=== PATIENT | male | born 1955 | race Caucasian/White ===

== ENCOUNTER → 2022-07-21 | Outpatient (CLI) | payer OTHER ==
[~2022-07-21] MED LIST: ABIR250T; ACET650T15 PO; ALBU8.5H INH; BACL1TAB9; BUDE10.7 IH; ELIQ5TAB; GASTROGRAFIN SOLUTION 30ML (Q9963) As Ordered ONE; ISOVUE-370 76% 100ML VIAL As Ordered ONE; MULT-6 PO; OMEG10002 PO; PRED5TA; PRED5TA PO; ZYTI250T PO
== END ==
LOC: M RAD 13:53
PROVIDERS: ATTEND Internal Medicine Medical Oncology
DX: C34.90 Malignant neoplasm of unspecified part of unspecified bronchus or lung (principal)
CPT/HCPCS: 70491; 71260; 74177; Q9963; Q9967

== ENCOUNTER → 2022-11-17 | Outpatient (REF) | payer OTHER ==
[~2022-11-17] MED LIST changes: +BACL1TAB9 PO; -GASTROGRAFIN SOLUTION 30ML (Q9963) As Ordered ONE; -ISOVUE-370 76% 100ML VIAL As Ordered ONE
== END ==
LOC: M LAB REF 09:41
PROVIDERS: ATTEND Nurse Practitioner
DX: C34.11 Malignant neoplasm of upper lobe, right bronchus or lung (principal); C61 Malignant neoplasm of prostate; C77.1 Secondary and unspecified malignant neoplasm of intrathoracic lymph nodes

== ENCOUNTER → 2022-11-18 | Outpatient (CLI) | payer OTHER ==
[~2022-11-18] MED LIST changes: +GASTROGRAFIN SOLUTION 30ML As Ordered ONE; +ISOVUE-370 76% 100ML VIAL As Ordered ONE; +OMEP40CA4 PO
== END ==
LOC: M RAD 09:05
PROVIDERS: ATTEND Nurse Practitioner
DX: C34.90 Malignant neoplasm of unspecified part of unspecified bronchus or lung (principal)
CPT/HCPCS: 71260; 74177; Q9963; Q9967

== ENCOUNTER → 2023-03-04 | Outpatient (CLI) | payer OTHER ==
[~2023-03-04] MED LIST changes: +ACET-683 PO; +ATOR1TAB19 PO; -ELIQ5TAB; +ELIQ5TAB PO; +FLON1SPR; -GASTROGRAFIN SOLUTION 30ML As Ordered ONE; -ISOVUE-370 76% 100ML VIAL As Ordered ONE; +KEYT1INJ IV; +MED FOR PROSTATE CA IM; +NICO10SP NARES; +PANT40TA29 PO; +PROHANCE 279.3MG/ML 15ML VIAL As Ordered ONE; +PROHANCE 279.3MG/ML 5ML VIAL As Ordered ONE
== END ==
LOC: M RAD 10:28
PROVIDERS: ATTEND Internal Medicine Medical Oncology
DX: C34.90 Malignant neoplasm of unspecified part of unspecified bronchus or lung (principal)

== ENCOUNTER 2023-03-19 08:55 | Day surgery (SDC) | payer OTHER ==
[~2023-03-19] VITALS: Ht 160 cm; Wt 84.8 kg
[~2023-03-19 08:55] MED LIST changes: +NS 1,000 ML IV ONE; -PROHANCE 279.3MG/ML 15ML VIAL As Ordered ONE; -PROHANCE 279.3MG/ML 5ML VIAL As Ordered ONE
[2023-03-19] MEDS ORDERED: propofoL 200 MG/20 ML VIAL As Ordered ONE (10:18)
[2023-03-19] MEDS ORDERED: GLYCOPYRROLATE INJ 0.2 MG/ML 2 ML VIAL As Ordered ONE (10:28)
[2023-03-19] MEDS ORDERED: PHENYLephrine 500MCG 5ML (100MCG/ML) SYRINGE As Ordered ONE (10:29)
[2023-03-19 11:14] VITALS: BP 126/75; TEMP 97.6; O2SAT 97
[2023-03-22] MEDS ORDERED: ZYTI250T PO (11:08)
[2023-03-22] MEDS ORDERED: PRED5TA PO (11:08)
== END 2023-03-19 11:16 | disposition home or self-care (01) ==
LOC: M OPP 08:55
PROVIDERS: ATTEND Internal Medicine Gastroenterology
DX: D12.5 Benign neoplasm of sigmoid colon (principal); K62.7 Radiation proctitis; K92.1 Melena; K57.30 Diverticulosis of large intestine without perforation or abscess without bleeding; K64.8 Other hemorrhoids; Z79.01 Long term (current) use of anticoagulants; Z79.1 Long term (current) use of non-steroidal anti-inflammatories (NSAID); Z79.2 Long term (current) use of antibiotics; Z79.51 Long term (current) use of inhaled steroids; Z88.0 Allergy status to penicillin; Z91.013 Allergy to seafood; Z91.030 Bee allergy status
CPT/HCPCS: 45385; 45388; 88305; J2370

== ENCOUNTER → 2023-05-20 | Outpatient (CLI) | payer OTHER ==
[~2023-05-20] MED LIST changes: +CIPR0.2S AS; +GASTROGRAFIN SOLUTION 30ML As Ordered ONE; +ISOVUE-370 76% 100ML VIAL As Ordered ONE; -NS 1,000 ML IV ONE
== END ==
LOC: M RAD 10:14
PROVIDERS: ATTEND Internal Medicine Medical Oncology
DX: C34.11 Malignant neoplasm of upper lobe, right bronchus or lung (principal); E27.9 Disorder of adrenal gland, unspecified; K43.9 Ventral hernia without obstruction or gangrene; N28.1 Cyst of kidney, acquired
CPT/HCPCS: 71260; 74177; Q9963; Q9967

== ENCOUNTER → 2023-08-23 | Outpatient (CLI) | payer OTHER ==
[~2023-08-23] MED LIST changes: +LISI10TA22 PO; +LISI5TAB11 PO; +NICO10SP; +NICOTINE TD
== END ==
LOC: M RAD 13:27
PROVIDERS: ATTEND Internal Medicine Medical Oncology
DX: C34.90 Malignant neoplasm of unspecified part of unspecified bronchus or lung (principal)
CPT/HCPCS: 71260; 74177; Q9963; Q9967

== ENCOUNTER → 2023-11-22 | Outpatient (CLI) | payer OTHER ==
[~2023-11-22] MED LIST changes: +HYDR12.55
== END ==
LOC: M RAD 08:45
PROVIDERS: ATTEND Nurse Practitioner
DX: C34.00 Malignant neoplasm of unspecified main bronchus (principal)
CPT/HCPCS: 71260; 74177; Q9963; Q9967

== ENCOUNTER → 2023-12-15 | Outpatient (CLI) | payer OTHER ==
[~2023-12-15] MED LIST changes: -GASTROGRAFIN SOLUTION 30ML As Ordered ONE; +HYDR28CR33 TOP; -ISOVUE-370 76% 100ML VIAL As Ordered ONE; +LISI10TA22; +LOPE2TAB12 PO; +PROHANCE 279.3MG/ML 15ML VIAL ONE; +PROHANCE 279.3MG/ML 5ML VIAL ONE
== END ==
LOC: M PLAIMG 13:28
PROVIDERS: ATTEND Psychiatry & Neurology Neurology
DX: G35 Multiple sclerosis (principal)
CPT/HCPCS: 70553; A9576

== ENCOUNTER 2023-12-17 17:07 | Emergency (ER) | payer OTHER ==
[~2023-12-17] VITALS: Ht 160 cm; Wt 82.8 kg
[~2023-12-17 17:07] MED LIST changes: -LISI10TA22; -LOPE2TAB12 PO; -PROHANCE 279.3MG/ML 15ML VIAL ONE; -PROHANCE 279.3MG/ML 5ML VIAL ONE
[2023-12-17] MEDS ORDERED: LISI10TA22 (17:20)
[2023-12-17 18:07] LABS: BASO % 0.2 % (0.0-1.0); EOS # 0.1 10^3/uL (0.0-0.5); EOS % 0.5 % (0.0-3.0); HEMATOCRIT 46.3 % (42.0-52.0); HEMOGLOBIN 16.1 g/dl (13.5-17.5); LYMPH # 0.7 10^3/uL (1.5-5.0); LYMPH % 7.3 % (24.0-44.0); MEAN CORPUSCULAR HEMOGLOBIN 35.2 pg (27.0-33.0); MEAN CORPUSCULAR HGB CONC 34.8 g/dl (32.0-36.5); MEAN CORPUSCULAR VOLUME 101.1 fl (80.0-96.0); MONO # 0.7 10^3/uL (0.0-0.8); MONO % 7.4 % (2.0-8.0); NEUTROPHILS # 7.9 10^3/uL (1.5-8.5); NEUTROPHILS % 84.2 % (36.0-66.0); PLATELET COUNT, AUTOMATED 181 10^3/uL (150-450); RED BLOOD COUNT 4.58 10^6/uL (4.30-6.10); WHITE BLOOD COUNT 9.4 10^3/uL (4.0-10.0)
[2023-12-17] MEDS: PANTOPRAZOLE 40MG VIAL IV ONE (18:14)
[2023-12-17 18:15] LABS: INR 0.96; PARTIAL THROMBOPLASTIN TIME 28.1 SECONDS (24.8-34.2); PROTHROMBIN TIME 12.6 SECONDS (12.5-14.5)
[2023-12-17 18:16] LABS: LIPASE 26 U/L (12-53)
[2023-12-17] MEDS: NS 1,000 ML IV ONE (18:16)
[2023-12-17 18:18] LABS: ALBUMIN 3.8 G/DL (3.2-5.2); ALKALINE PHOSPHATASE 93 U/L (46-116); ALT/SGPT 29 U/L (7.0-40); AST/SGOT 24 U/L (<34); BILIRUBIN,DIRECT 0.1 MG/DL (<0.4); BILIRUBIN,TOTAL 0.4 MG/DL (0.3-1.2); BLOOD UREA NITROGEN 20 MG/DL (9-23); CALCIUM LEVEL 9.6 MG/DL (8.3-10.6); CARBON DIOXIDE LEVEL 26 MMOL/L (20-31); CHLORIDE LEVEL 106 MMOL/L (98-107); CREATININE FOR GFR 0.72 MG/DL (0.70-1.30); GLOMERULAR FILTRATION RATE > 60.0 (>49); GLUCOSE, FASTING 120 MG/DL (74-106); SODIUM LEVEL 136 MMOL/L (136-145); TOTAL PROTEIN 6.9 G/DL (5.7-8.2)
[2023-12-17] MEDS ORDERED: LOPE2TAB12 PO (18:54)
[2023-12-17] MEDS: LOPERAMIDE 2 MG CAPLET PO ONE (19:07)
[2023-12-17 19:12] VITALS: BP 124/74; TEMP 98; O2SAT 100
== END 2023-12-17 19:14 | disposition home or self-care (01) ==
LOC: M ED 17:07
DX: R19.7 Diarrhea, unspecified (principal); I10 Essential (primary) hypertension; J44.9 Chronic obstructive pulmonary disease, unspecified; F17.210 Nicotine dependence, cigarettes, uncomplicated; Z88.0 Allergy status to penicillin; Z91.013 Allergy to seafood; Z91.030 Bee allergy status; Z79.1 Long term (current) use of non-steroidal anti-inflammatories (NSAID); Z79.51 Long term (current) use of inhaled steroids; Z79.2 Long term (current) use of antibiotics; Z79.810 Long term (current) use of selective estrogen receptor modulators (SERMs); Z79.52 Long term (current) use of systemic steroids; Z79.899 Other long term (current) drug therapy
CPT/HCPCS: 74176; 80048; 80076; 83690; 85025; 85610; 85730; 86850; 86900; 86901; 96361; 96374; 99284; C9113

== ENCOUNTER → 2023-12-20 | Outpatient (CLI) | payer OTHER ==
[~2023-12-20] MED LIST changes: +LISI10TA22; +LOPE2TAB12 PO; +PROHANCE 279.3MG/ML 15ML VIAL ONE; +PROHANCE 279.3MG/ML 5ML VIAL ONE
== END ==
LOC: M PLAIMG 09:06
PROVIDERS: ATTEND Psychiatry & Neurology Neurology
DX: G35 Multiple sclerosis (principal)
CPT/HCPCS: 72156; 72157; A9576

== ENCOUNTER 2024-02-28 12:15 | Day surgery (SDC) | payer OTHER ==
[~2024-02-28] VITALS: Ht 160 cm; Wt 74.4 kg
[2024-02-28] MEDS: NS 1,000 ML IV ONE (06:00)
[~2024-02-28 12:15] MED LIST changes: -HYDR12.55; +HYDR12.55 PO; +LEVO1TAB39 PO; -LISI10TA22; +LOPE-39 PO; +PRED1TABL PO; -PROHANCE 279.3MG/ML 15ML VIAL ONE; -PROHANCE 279.3MG/ML 5ML VIAL ONE
[2024-02-28] MEDS ORDERED: FECAL MICROBIOTA TRANSPLANT PREPARATION 35ML BAG XX ONE (14:00)
[2024-02-28] MEDS ORDERED: propofoL 200 MG/20 ML VIAL As Ordered ONE (14:53)
[2024-02-28] MEDS ORDERED: LIDOCAINE 2% 100MG/5ML SDV (FOR ANES.) As Ordered ONE (14:53)
[2024-02-28 15:07] VITALS: TEMP 97.9
[2024-02-28 15:26] VITALS: BP 123/70; O2SAT 99
[2024-03-02] MEDS ORDERED: PRED10TA2 PO (13:22)
[2024-03-02] MEDS ORDERED: POTA8CAP10 PO (13:26)
[2024-04-13] MEDS ORDERED: HYDR-3490 PO (09:44)
[2024-04-13] MEDS ORDERED: METO1TAB87 PO (09:44)
[2024-04-14] MEDS ORDERED: LOPE2TAB12 PO (10:41)
[2024-04-14] MEDS ORDERED: PRED10TA2 PO (10:52)
[2024-04-28] MEDS ORDERED: PRED5TA PO (13:44)
[2024-05-31] MEDS ORDERED: MAGN400C PO (13:36)
== END 2024-02-28 15:27 | disposition home or self-care (01) ==
LOC: M OPP 12:15
PROVIDERS: ATTEND Internal Medicine Gastroenterology
DX: A04.72 Enterocolitis due to Clostridium difficile, not specified as recurrent (principal); K52.832 Lymphocytic colitis; I10 Essential (primary) hypertension; J44.9 Chronic obstructive pulmonary disease, unspecified; G35 Multiple sclerosis; F17.200 Nicotine dependence, unspecified, uncomplicated; Z86.711 Personal history of pulmonary embolism; Z79.01 Long term (current) use of anticoagulants; Z79.02 Long term (current) use of antithrombotics/antiplatelets; Z79.1 Long term (current) use of non-steroidal anti-inflammatories (NSAID); Z79.51 Long term (current) use of inhaled steroids; Z79.891 Long term (current) use of opiate analgesic; Z79.899 Other long term (current) drug therapy; Z88.0 Allergy status to penicillin; Z91.013 Allergy to seafood; Z91.030 Bee allergy status
CPT/HCPCS: 45380; 88305; G0455

== ENCOUNTER 2024-03-08 14:50 | Inpatient (IN) | payer OTHER ==
[~2024-03-08] VITALS: Ht 160 cm; Wt 77.2 kg
[~2024-03-08 14:50] MED LIST changes: +POTA8CAP10 PO; +PRED10TA2 PO
[2024-03-08] MEDS ORDERED: VANC1CAP6 PO (15:11)
[2024-03-08] MEDS ORDERED: VANCOMYCIN HCL 1,500 MG in NS 250 ML IV ONE (17:25)
[2024-03-08 17:32] LABS: HEMATOCRIT 38.8 % (42.0-52.0); HEMOGLOBIN 13.2 g/dl (13.5-17.5); MEAN CORPUSCULAR HEMOGLOBIN 34.6 pg (27.0-33.0); MEAN CORPUSCULAR VOLUME 101.8 fl (80.0-96.0); PLATELET COUNT, AUTOMATED 222 10^3/uL (150-450); RED BLOOD COUNT 3.81 10^6/uL (4.30-6.10); WHITE BLOOD COUNT 13.6 10^3/uL (4.0-10.0)
[2024-03-08] MEDS: VANCOMYCIN HCL 750 MG, VIAL MATE ADAPTER 1 EACH in D5W 250 ML IV ONE ×2 (17:41→18:50)
[2024-03-08 17:46] LABS: ERYTHROCYTE SEDIMENTATION RATE 27 mm/hr (0-20)
[2024-03-08 17:57] LABS: INR 1.17; PROTHROMBIN TIME 14.6 SECONDS (12.5-14.5)
[2024-03-08 17:58] LABS: ATYPICAL LYMPH 1 % (0-5); LYMPHOCYTES 2 % (16-44); MONOCYTES 3 % (0-5); NEUTROPHILS 77 % (28-66)
[2024-03-08 17:59] LABS: PLATELET ESTIMATE NORMAL (NORMAL); TOXIC VACUOLATION 2+
[2024-03-08 18:01] LABS: ALBUMIN 2.7 G/DL (3.2-5.2); ALKALINE PHOSPHATASE 60 U/L (46-116); ALT/SGPT 29 U/L (7.0-40); AST/SGOT 15 U/L (<34); BILIRUBIN,DIRECT 0.2 MG/DL (<0.4); BILIRUBIN,TOTAL 0.5 MG/DL (0.3-1.2); BLOOD UREA NITROGEN 22 MG/DL (9-23); CALCIUM LEVEL 8.6 MG/DL (8.3-10.6); CARBON DIOXIDE LEVEL 29 MMOL/L (20-31); CHLORIDE LEVEL 105 MMOL/L (98-107); CREATININE FOR GFR 0.73 MG/DL (0.70-1.30); GLOMERULAR FILTRATION RATE > 60.0 (>49); GLUCOSE, FASTING 167 MG/DL (74-106); POTASSIUM SERUM 4.1 MMOL/L (3.5-5.1); SODIUM LEVEL 139 MMOL/L (136-145); TOTAL PROTEIN 5.3 G/DL (5.7-8.2)
[2024-03-08 18:08] LABS: PROCALCITONIN 4.07 ng/ml
[2024-03-08] MEDS ORDERED: VANCOMYCIN HCL 1,500 MG in D5W 250 ML IV SCH (19:25)
[2024-03-08] MEDS ORDERED: MAALOX 30 ML SUSP *UDC PO PRN (19:25)
[2024-03-08] MEDS ORDERED: MOM 30ML SUSPENSION UDC PO PRN (19:25)
[2024-03-08 19:43] LABS: MAGNESIUM LEVEL 1.5 MG/DL (1.8-2.4)
[2024-03-08] MEDS: NICOTINE 21MG/24HR 1 EA TRANSDERMAL TD ONE (20:01)
[2024-03-08] MEDS: SODIUM CHLORIDE 0.9% 1000ML IV ONE (20:01)
[2024-03-08] MEDS ORDERED: POTA8CAP10 PO (20:26)
[2024-03-08] MEDS ORDERED: BACL1TAB9 PO (20:26)
[2024-03-08] MEDS ORDERED: BUDE10.7 INH (20:26)
[2024-03-08] MEDS ORDERED: PANT40TA29 PO (20:26)
[2024-03-08] MEDS ORDERED: HOME MED LIST COMPLETE! XX SCH (20:30)
[2024-03-08 20:35] LABS: FREE T4 1.02 NG/DL (0.89-1.76)
[2024-03-08 20:36] LABS: THYROID STIMULATING HORMONE 0.353 uIU/ML (0.55-4.78)
[2024-03-08] MEDS: MAG SULF 1GM/100ML (MAG RUN) 1 GM in IV 1 EA IV SCH (21:03)
[2024-03-08] MEDS: FIDAXOMICIN 200 MG TAB (DIFICID) PO SCH (21:49)
[2024-03-08 23:07] LABS: CLOSTRIDIUM DIFFICILE PCR NEGATIVE (NEGATIVE)
[2024-03-09] VITALS (12 sets, daily range): BP systolic 103–141; BP diastolic 56–72; TEMP 97.2–99.3; O2SAT 89–94
[2024-03-09] MEDS: APIXABAN 5 MG TAB (ELIQUIS) PO SCH (01:43)
[2024-03-09 05:45] LABS: HEMATOCRIT 34.1 % (42.0-52.0); HEMOGLOBIN 11.8 g/dl (13.5-17.5); MEAN CORPUSCULAR HEMOGLOBIN 34.7 pg (27.0-33.0); MEAN CORPUSCULAR HGB CONC 34.6 g/dl (32.0-36.5); MEAN CORPUSCULAR VOLUME 100.3 fl (80.0-96.0); PLATELET COUNT, AUTOMATED 191 10^3/uL (150-450); WHITE BLOOD COUNT 11.7 10^3/uL (4.0-10.0)
[2024-03-09] MEDS: VANCOMYCIN HCL 750 MG, VIAL MATE ADAPTER 1 EACH in D5W 250 ML IV SCH (06:00)
[2024-03-09 06:16] LABS: PROCALCITONIN 3.06 ng/ml
[2024-03-09 06:17] LABS: ALKALINE PHOSPHATASE 55 U/L (46-116); ALT/SGPT 23 U/L (7.0-40); AST/SGOT 13 U/L (<34); BILIRUBIN,TOTAL 0.3 MG/DL (0.3-1.2); BLOOD UREA NITROGEN 19 MG/DL (9-23); CALCIUM LEVEL 8.3 MG/DL (8.3-10.6); CARBON DIOXIDE LEVEL 29 MMOL/L (20-31); CHLORIDE LEVEL 103 MMOL/L (98-107); CREATININE FOR GFR 0.61 MG/DL (0.70-1.30); GLOMERULAR FILTRATION RATE > 60.0 (>49); GLUCOSE, FASTING 135 MG/DL (74-106); MAGNESIUM LEVEL 1.8 MG/DL (1.8-2.4); POTASSIUM SERUM 3.8 MMOL/L (3.5-5.1); SODIUM LEVEL 133 MMOL/L (136-145); TOTAL PROTEIN 4.3 G/DL (5.7-8.2)
[2024-03-09] MEDS: TIOTROPIUM INHALER/CAPSULE (SPIRIVA) INH SCH (08:00)
[2024-03-09] MEDS: SYMBICORT 80/4.5MCG INHALER 6GM INH SCH (08:00)
[2024-03-09] MEDS: VANCOMYCIN HCL 500 MG in D5W MINI-BAG PLUS 100 ML IV SCH (08:11)
[2024-03-09] MEDS: LACTOBACILLUS ACIDOPHILUS CAP (BACID) PO SCH (08:12)
[2024-03-09] MEDS: MAGNESIUM OXIDE 400MG TAB (MAG-OX) PO SCH (08:12)
[2024-03-09] MEDS ORDERED: CEFEPIME HCL 2 GM in D5W MINI-BAG PLUS 50 ML IV SCH (08:30)
[2024-03-09] MEDS: LR 1,000 ML IV ONE (09:26)
[2024-03-09 10:24] LABS: ANTI-STREPTOLYSIN O QUANT 129.9 IU/ML (<195)
[2024-03-09] MEDS: predniSONE 10MG TAB PO SCH (10:41)
[2024-03-09] MEDS: METOPROLOL TART 25 MG TABLET PO SCH (10:41)
[2024-03-09] MEDS: CEFEPIME HCL 2 GM in D5W MINI-BAG PLUS 50 ML IV SCH (10:41)
[2024-03-09] MEDS: ATORVASTATIN 10 MG TAB PO SCH (10:42)
[2024-03-09] MEDS: PANTOPRAZOLE 40MG TAB (PROTONIX) PO SCH (10:42)
[2024-03-09] MEDS: ACETAMINOPHEN TAB 650MG DOSE (2X325MG) PO PRN (11:49)
[2024-03-09] MEDS ORDERED: MORPHINE 2 MG/ML 1ML VIAL IV PRN (12:45)
[2024-03-09] MEDS ORDERED: LINE1TAB PO (17:39)
[2024-03-09] MEDS: LINEZOLID 600MG TABLET (ZYVOX) PO SCH (20:34)
[2024-03-10] VITALS (20 sets, daily range): BP systolic 124–156; BP diastolic 71–84; TEMP 97.4–99.3; O2SAT 83–98
[2024-03-10 05:06] LABS: BASO % 0.1 % (0.0-1.0); EOS % 0.1 % (0.0-3.0); HEMATOCRIT 30.9 % (42.0-52.0); HEMOGLOBIN 10.4 g/dl (13.5-17.5); LYMPH # 0.3 10^3/uL (1.5-5.0); LYMPH % 2.3 % (24.0-44.0); MEAN CORPUSCULAR HGB CONC 33.7 g/dl (32.0-36.5); MONO # 0.9 10^3/uL (0.0-0.8); MONO % 6.4 % (2.0-8.0); NEUTROPHILS # 12.1 10^3/uL (1.5-8.5); NEUTROPHILS % 89.7 % (36.0-66.0); PLATELET COUNT, AUTOMATED 166 10^3/uL (150-450); RED BLOOD COUNT 3.06 10^6/uL (4.30-6.10); WHITE BLOOD COUNT 13.5 10^3/uL (4.0-10.0)
[2024-03-10 05:31] LABS: BLOOD UREA NITROGEN 15 MG/DL (9-23); CALCIUM LEVEL 7.7 MG/DL (8.3-10.6); CARBON DIOXIDE LEVEL 28 MMOL/L (20-31); CHLORIDE LEVEL 104 MMOL/L (98-107); CREATININE FOR GFR 0.59 MG/DL (0.70-1.30); GLOMERULAR FILTRATION RATE > 60.0 (>49); GLUCOSE, FASTING 128 MG/DL (74-106); POTASSIUM SERUM 3.8 MMOL/L (3.5-5.1); SODIUM LEVEL 135 MMOL/L (136-145)
[2024-03-10] MEDS: PERCOCET 5MG/325MG TAB PO PRN (08:25)
[2024-03-10] MEDS ORDERED: GLUCAGON INJ 1MG VIAL SC PRN (18:20)
[2024-03-10] MEDS ORDERED: DEXTROSE 50% 50ML SYRINGE IV PRN (18:20)
[2024-03-10] MEDS ORDERED: GLUCOSE 4 GM CHEW PO PRN (18:20)
[2024-03-10] MEDS: INSULIN LISPRO (NovoLOG) PER UNIT SC SCH ×2 (18:30→21:00)
[2024-03-10 18:53] LABS: HEMOGLOBIN A1c 5.6 % (4.0-6.0)
[2024-03-10] MEDS: METOPROLOL TART 50 MG TAB PO SCH (21:18)
[2024-03-11] MEDS: LEVALBUTEROL 1.25MG 0.5ML CONCENTRATE NEB INH PRN (03:26)
[2024-03-11 03:46] VITALS: BP 136/78; TEMP 97.6; O2SAT 91
[2024-03-11 07:21] LABS: BASO % 0.1 % (0.0-1.0); EOS % 0.1 % (0.0-3.0); HEMATOCRIT 30.6 % (42.0-52.0); HEMOGLOBIN 10.5 g/dl (13.5-17.5); LYMPH # 0.4 10^3/uL (1.5-5.0); LYMPH % 3.1 % (24.0-44.0); MEAN CORPUSCULAR HEMOGLOBIN 34.3 pg (27.0-33.0); MEAN CORPUSCULAR HGB CONC 34.3 g/dl (32.0-36.5); MONO # 0.6 10^3/uL (0.0-0.8); MONO % 5.3 % (2.0-8.0); NEUTROPHILS # 10.4 10^3/uL (1.5-8.5); NEUTROPHILS % 89.8 % (36.0-66.0); PLATELET COUNT, AUTOMATED 161 10^3/uL (150-450); RED BLOOD COUNT 3.06 10^6/uL (4.30-6.10); WHITE BLOOD COUNT 11.5 10^3/uL (4.0-10.0)
[2024-03-11 07:55] LABS: BLOOD UREA NITROGEN 14 MG/DL (9-23); CALCIUM LEVEL 8.3 MG/DL (8.3-10.6); CARBON DIOXIDE LEVEL 27 MMOL/L (20-31); CHLORIDE LEVEL 106 MMOL/L (98-107); GLOMERULAR FILTRATION RATE > 60.0 (>49); GLUCOSE, FASTING 124 MG/DL (74-106); POTASSIUM SERUM 3.9 MMOL/L (3.5-5.1); SODIUM LEVEL 138 MMOL/L (136-145)
[2024-03-11 08:08] VITALS: BP 144/84
[2024-03-11] MEDS: INSULIN LISPRO (NovoLOG) PER UNIT SC SCH (08:09)
[2024-03-11 08:29] VITALS: TEMP 97.3; O2SAT 97
[2024-03-11 09:00] VITALS: O2SAT 92
[2024-03-11] MEDS ORDERED: RISATAB3 PO (11:36)
[2024-03-11] MEDS ORDERED: METO25TA4 PO (11:36)
== END 2024-03-11 14:00 | disposition home health service (06) | DRG 872 ==
LOC: M ED 14:50 → M ED INP 19:22 → M PCU 03-09 01:23
PROVIDERS: ADMIT Family Medicine; ATTEND Internal Medicine
PROC: B246ZZZ Ultrasonography of Right and Left Heart (ICD-10-PCS; principal; 2024-03-09)
DX: A41.9 Sepsis, unspecified organism (principal); L03.115 Cellulitis of right lower limb; A04.0 Enteropathogenic Escherichia coli infection; K52.1 Toxic gastroenteritis and colitis; C78.4 Secondary malignant neoplasm of small intestine; C34.90 Malignant neoplasm of unspecified part of unspecified bronchus or lung; D84.821 Immunodeficiency due to drugs; I48.91 Unspecified atrial fibrillation; R65.20 Severe sepsis without septic shock; G35 Multiple sclerosis; K21.9 Gastro-esophageal reflux disease without esophagitis; J44.9 Chronic obstructive pulmonary disease, unspecified; B19.20 Unspecified viral hepatitis C without hepatic coma; F17.200 Nicotine dependence, unspecified, uncomplicated; E83.42 Hypomagnesemia; I10 Essential (primary) hypertension; E78.5 Hyperlipidemia, unspecified; T45.1X5A Adverse effect of antineoplastic and immunosuppressive drugs, initial encounter; Z85.46 Personal history of malignant neoplasm of prostate; Z86.711 Personal history of pulmonary embolism; Z79.01 Long term (current) use of anticoagulants; Z79.899 Other long term (current) drug therapy; Z88.0 Allergy status to penicillin; Z91.018 Allergy to other foods; Z91.030 Bee allergy status

== ENCOUNTER → 2024-04-21 | Outpatient (CLI) | payer OTHER ==
[~2024-04-21] MED LIST changes: +BUDE10.7 INH; +GASTROGRAFIN SOLUTION 30ML ONE; +HYDR-3490 PO; +ISOVUE-370 76% 100ML VIAL ONE; +LINE1TAB PO; +METO1TAB87 PO; +METO25TA4 PO; +RISATAB3 PO; +VANC1CAP6 PO
== END ==
LOC: M PLAIMG 11:23
PROVIDERS: ATTEND Internal Medicine Medical Oncology
DX: C34.91 Malignant neoplasm of unspecified part of right bronchus or lung (principal)
CPT/HCPCS: 71260; 74177; Q9963; Q9967

== ENCOUNTER 2024-04-27 06:36 | Day surgery (SDC) | payer OTHER ==
[~2024-04-27] VITALS: Ht 160 cm; Wt 68.0 kg
[~2024-04-27 06:36] MED LIST changes: -GASTROGRAFIN SOLUTION 30ML ONE; -ISOVUE-370 76% 100ML VIAL ONE; -KEYT1INJ IV; +NS 1,000 ML IV ONE; +PEMB100V2 IV
[2024-04-27] MEDS ORDERED: LIDOCAINE 2% 100MG/5ML SDV (FOR ANES.) As Ordered ONE (07:13)
[2024-04-27] MEDS ORDERED: GLYCOPYRROLATE INJ 0.2 MG/ML 2 ML VIAL As Ordered ONE (07:14)
[2024-04-27] MEDS ORDERED: propofoL 200 MG/20 ML VIAL As Ordered ONE (07:16)
[2024-04-27] MEDS ORDERED: fentaNYL 100 MCG/2 ML INJECTION As Ordered ONE (07:40)
[2024-04-27] MEDS ORDERED: PHENYLephrine 500MCG 5ML (100MCG/ML) SYRINGE As Ordered ONE (07:41)
[2024-04-27 08:00] VITALS: TEMP 97
[2024-04-27 08:15] VITALS: BP 100/57; O2SAT 99
[2024-04-28] MEDS ORDERED: PRED5TA PO (13:44)
[2024-05-31] MEDS ORDERED: MAGN400C PO (13:36)
== END 2024-04-27 09:01 | disposition home or self-care (01) ==
LOC: M OPP 06:36
PROVIDERS: ATTEND Internal Medicine Gastroenterology
DX: K64.8 Other hemorrhoids (principal); K62.7 Radiation proctitis; K52.9 Noninfective gastroenteritis and colitis, unspecified; K51.90 Ulcerative colitis, unspecified, without complications; I48.91 Unspecified atrial fibrillation; F17.200 Nicotine dependence, unspecified, uncomplicated; Z79.01 Long term (current) use of anticoagulants; Z79.02 Long term (current) use of antithrombotics/antiplatelets; Z79.1 Long term (current) use of non-steroidal anti-inflammatories (NSAID); Z79.51 Long term (current) use of inhaled steroids; Z79.899 Other long term (current) drug therapy; Z88.0 Allergy status to penicillin; Z91.013 Allergy to seafood; Z91.030 Bee allergy status
CPT/HCPCS: 45380; 45388; 88305; J1596; J2371; J3010

== ENCOUNTER → 2024-06-05 | Outpatient (CLI) | payer OTHER ==
[~2024-06-05] MED LIST changes: +KEYT1INJ IV; +MAGN400C PO; -NS 1,000 ML IV ONE; -PEMB100V2 IV; +PROHANCE 279.3MG/ML 15ML VIAL ONE
== END ==
LOC: M PLAIMG 12:55
PROVIDERS: ATTEND Dietitian, Registered
DX: C34.90 Malignant neoplasm of unspecified part of unspecified bronchus or lung (principal)
CPT/HCPCS: 70553; A9576

== ENCOUNTER → 2024-08-30 | Outpatient (CLI) | payer OTHER ==
[~2024-08-30] MED LIST changes: +GASTROGRAFIN SOLUTION 30ML ONE; +ISOVUE-370 76% 100ML VIAL ONE; -KEYT1INJ IV; +PEMB100V2 IV; -PROHANCE 279.3MG/ML 15ML VIAL ONE
== END ==
LOC: M PLAIMG 09:11
PROVIDERS: ATTEND Internal Medicine Medical Oncology
DX: C34.90 Malignant neoplasm of unspecified part of unspecified bronchus or lung (principal)
CPT/HCPCS: 71260; 74177; Q9963; Q9967

== ENCOUNTER → 2024-12-05 | Outpatient (CLI) | payer OTHER ==
[~2024-12-05] MED LIST changes: -ABIR250T; +ABIR250T2; +FERR325T3 PO; -GASTROGRAFIN SOLUTION 30ML ONE; +ISOVUE-370 76% 100ML VIAL As Ordered ONE; -ISOVUE-370 76% 100ML VIAL ONE
[2024-12-05 12:28] LABS: BASO % 0.4 % (0.0-1.0); EOS # 0.1 10^3/uL (0.0-0.5); EOS % 1.8 % (0.0-3.0); HEMATOCRIT 40.3 % (42.0-52.0); HEMOGLOBIN 13.4 g/dl (13.5-17.5); LYMPH # 0.7 10^3/uL (1.5-5.0); LYMPH % 10.3 % (24.0-44.0); MEAN CORPUSCULAR HEMOGLOBIN 33.6 pg (27.0-33.0); MEAN CORPUSCULAR HGB CONC 33.3 g/dl (32.0-36.5); MONO # 0.6 10^3/uL (0.0-0.8); MONO % 7.8 % (2.0-8.0); NEUTROPHILS # 5.7 10^3/uL (1.5-8.5); NEUTROPHILS % 79.4 % (36.0-66.0); PLATELET COUNT, AUTOMATED 149 10^3/uL (150-450); RED BLOOD COUNT 3.99 10^6/uL (4.30-6.10); WHITE BLOOD COUNT 7.2 10^3/uL (4.0-10.0)
[2024-12-05 13:01] LABS: ALBUMIN 3.7 G/DL (3.2-5.2); ALKALINE PHOSPHATASE 78 U/L (40-129); ALT/SGPT 17 U/L (7.0-40); AST/SGOT 16 U/L (<34); BILIRUBIN,TOTAL 0.3 MG/DL (0.3-1.2); BLOOD UREA NITROGEN 21 MG/DL (9-23); CALCIUM LEVEL 9.2 MG/DL (8.3-10.6); CARBON DIOXIDE LEVEL 30 MMOL/L (20-31); CHLORIDE LEVEL 105 MMOL/L (98-107); CREATININE FOR GFR 0.76 MG/DL (0.70-1.30); GLOMERULAR FILTRATION RATE > 60.0 (>42); GLUCOSE, FASTING 122 MG/DL (74-106); MAGNESIUM LEVEL 1.8 MG/DL (1.8-2.4); PROSTATIC SPECIFIC AG MONITOR 0.04 NG/ML (< 4.00); SODIUM LEVEL 140 MMOL/L (136-145); TOTAL PROTEIN 6.5 G/DL (5.7-8.2)
[2024-12-05 13:02] LABS: FERRITIN 46.6 NG/ML (10.5-307.3); THYROID STIMULATING HORMONE 0.569 uIU/ML (0.55-4.78)
[2024-12-05 13:03] LABS: FREE T3 3.2 PG/ML (2.3-4.2); FREE T4 1.13 NG/DL (0.89-1.76)
== END ==
LOC: M RAD 10:36
PROVIDERS: ATTEND Internal Medicine Medical Oncology
DX: C34.90 Malignant neoplasm of unspecified part of unspecified bronchus or lung (principal); E07.9 Disorder of thyroid, unspecified; R97.20 Elevated prostate specific antigen [PSA]
CPT/HCPCS: 36415; 71260; 74177; 80053; 82728; 83735; 84153; 84439; 84443; 84481; 85025; Q9967

== ENCOUNTER → 2025-08-06 | Outpatient (CLI) | payer MEDICARE, MEDICAID ==
[~2025-08-06] MED LIST changes: +ACET-1515 PO; -ACET650T15 PO; -HYDR28CR33 TOP; +HYDR28CR52 TOP; +ISOVUE-370 76% 100 ML VIAL As Ordered ONE; -ISOVUE-370 76% 100ML VIAL As Ordered ONE; +PRED-1142 PO; -PRED1TABL PO
== END ==
LOC: M RAD 15:58
DX: C34.90 Malignant neoplasm of unspecified part of unspecified bronchus or lung (principal); K44.9 Diaphragmatic hernia without obstruction or gangrene; N28.1 Cyst of kidney, acquired; N20.0 Calculus of kidney; K43.9 Ventral hernia without obstruction or gangrene; N42.0 Calculus of prostate; J43.9 Emphysema, unspecified; I25.10 Atherosclerotic heart disease of native coronary artery without angina pectoris
CPT/HCPCS: 71260; 74177; Q9967